=== PATIENT | male | born 2000 | race Caucasian/White ===

== ENCOUNTER 2021-03-03 15:04 | Observation (INO) ==
[2021-03-03] MEDS ORDERED: LACTATED RINGERS 1,000 ML IV STA (15:13)
[2021-03-03] MEDS ORDERED: fentaNYL 100 MCG/2 ML VIAL IV STA ×2 (15:13→16:29)
[2021-03-03] MEDS ORDERED: propofoL 200 MG/20 ML VIAL IV ONE (15:16)
[2021-03-03] MEDS ORDERED: HYDROmorphone 2 MG/1 ML VIAL ONE (15:40)
[2021-03-03 15:42] LABS: Basophils % 0.5 % (0.0-0.8); Eosinophils # 0.5 10*3/uL (0.0-0.87); Eosinophils % 5.5 % (0.00-10.9); Hematocrit 45.3 VOL% (42.0-52.0); Hemoglobin 14.9 GM/DL (14.0-18.0); Immature Granulocytes % 0.5 %; Immature Granulocytes Absolute 0.04 #; Lymphocytes % 36.2 % (21.2-54.2); Mean Corpuscular HGB Conc 32.9 GM/DL (32-36); Mean Corpuscular Volume 93.8 FL (87-102); Mean Platelet Volume 9.8 FL (9.6-12.0); Neutrophils % 49.3 % (38.7-73.9); Platelet Count 338 T/CUMM (130-400); Red Blood Count 4.83 MC/CUMM (3.8-5.5); Red Cell Distribution Width 12.5 % (9.3-17.3); White Blood Count 8.4 T/CUMM (4-12)
[2021-03-03 15:53] LABS: PT Patient Result 11.2 SECS (10.5-12.0); Partial Thromboplastin Time 23.1 SECS (23.8-32.1)
[2021-03-03 15:54] LABS: Alanine Aminotransferase 57 U/L (16-61); Albumin 3.9 G/DL (3.4-5.0); Alkaline Phosphatase 87 U/L (45-117); Amylase 29 U/L (25-115); Aspartate Amino Transferase 26 U/L (0-37); Blood Urea Nitrogen 12 MG/DL (7-18); Carbon Dioxide 23 MMOL/L (21-32); Estimated Glom Filtration Rate 141 ML/MIN; Glucose 171 MG/DL (74-106); Osmolality,Calculated 278.7 MOS/KG (273-304); Potassium 3.4 MMOL/L (3.5-5.1); Sodium 138 MMOL/L (136-145); Total Protein 7.5 G/DL (6.4-8.2)
[2021-03-03] MEDS ORDERED: ONDANSETRON 4 MG/2 ML VIAL IV STA (16:30)
[2021-03-03] MEDS ORDERED: propofoL 200 MG/20 ML VIAL IV STA ×2 (16:30→16:33)
[2021-03-03] MEDS ORDERED: HYDROmorphone 2 MG/1 ML VIAL IV STA ×2 (16:33→17:22)
[2021-03-03] MEDS ORDERED: LIDOCAINE 1%/EPI INJ 20 ML VIAL ONE (17:19)
[2021-03-03] MEDS ORDERED: ONDANSETRON 4 MG/2 ML VIAL IV PRN (18:08)
[2021-03-03] MEDS: MORPHINE 2 MG/1 ML SYRINGE IV PRN (21:19)
[2021-03-03] MEDS: LACTATED RINGERS 1,000 ML IV SCH (21:20)
[2021-03-04] MEDS: MORPHINE 2 MG/1 ML SYRINGE IV PRN ×4 (02:10→18:10)
[2021-03-04 03:08] LABS: Barbiturates Screen,Urine Negative (Negative); Benzodiazepines Screen,Urine Negative (Negative); Cannabinoid Screen,Urine Negative (Negative); Opiate Screen,Urine Positive (Negative); Phencyclidine Screen,Urine Negative (Negative)
[2021-03-04] MEDS: LACTATED RINGERS 1,000 ML IV SCH ×3 (05:02→22:29)
[2021-03-04] MEDS: PANTOPRAZOLE 40 MG TABLET PO SCH (10:31)
[2021-03-04] MEDS: ACETAMINOPHEN 325 MG TABLET PO PRN (14:53)
[2021-03-04 16:04] LABS: Bilirubin,Urine Negative (Negative); Blood, Urine Negative (Negative); Glucose,Urine (UA) 50 mg/dL (Negative); Ketones,Urine Negative (Negative); Nitrite,Urine Negative (Negative); Protein,Urine Negative; Urine Appearance CLEAR (Clear); Urine Color Yellow (Yellow); Urine Specific Gravity 1.011 (1.001-1.035); Urine Urobilinogen < 2.0 EU/DL (<2.0)
[2021-03-04 16:05] LABS: Mucus,Urine Occasional /LPF (Occasional); RBC,Urine 2 /HPF (0-4); Squamous Epithelial Cell,Urine Occasional /HPF (0-10)
[2021-03-05] MEDS: MORPHINE 2 MG/1 ML SYRINGE IV PRN ×5 (01:50→20:38)
[2021-03-05] MEDS: LACTATED RINGERS 1,000 ML IV SCH ×2 (06:39→15:27)
[2021-03-05] MEDS: PANTOPRAZOLE 40 MG TABLET PO SCH (08:23)
[2021-03-05] MEDS: ACETAMINOPHEN 325 MG TABLET PO PRN (11:39)
[2021-03-05] MEDS ORDERED: BACITRACIN OINT 0.9 GM PACK TOP ONE (12:38)
[2021-03-05] MEDS: BACITRACIN OPH OINT 3.5 GM TUBE RIGHT EYE SCH (20:54)
[2021-03-06] MEDS: MORPHINE 2 MG/1 ML SYRINGE IV PRN ×2 (03:28→13:34)
[2021-03-06] MEDS: BACITRACIN OPH OINT 3.5 GM TUBE RIGHT EYE SCH (09:03)
[2021-03-06] MEDS: PANTOPRAZOLE 40 MG TABLET PO SCH (09:03)
[2021-03-06] MEDS: ACETAMINOPHEN 325 MG TABLET PO PRN (10:24)
[2021-03-06 11:40] VITALS: BP 102/65
[2021-03-06] MEDS ORDERED: SKIN HEALING OINT (AQUAPHOR) 50 GM TUBE TOP SCH (13:30)
[2021-03-06] MEDS ORDERED: BACITRACIN OPH OINT 3.5 GM TUBE RIGHT EYE SCH (15:00)
== END 2021-03-06 15:24 | disposition home or self-care (01) ==
LOC: EDUNIT# → EDBD → N.ED 15:04 → N.EDINP 15:04 → N.3E 19:11
PROVIDERS: ADMIT Student in an Organized Health Care Education/Training Program; ATTEND Student in an Organized Health Care Education/Training Program